=== PATIENT | female | born 1935 | race African-American/Black ===

== ENCOUNTER 2020-08-14 11:38 | Inpatient (IN) | payer MEDICARE, BC ==
[~2020-08-14] VITALS: Ht 165.1 cm; Wt 52.2 kg
[2020-08-14] MEDS ORDERED: ISOSORBIDE DINIT5 MG ORAL (11:43)
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
--- NOTE | 2020-08-14 12:16 | NUR ---
ED Nurse Note: pt aware that we need to obtain a urine sample. relates unable to at this time.
[2020-08-14] MEDS ORDERED: CLOPIDOGREL75 MG ORAL (12:19)
[2020-08-14] MEDS ORDERED: METFORMIN HCL500 M1 ORAL (12:19)
[2020-08-14] MEDS ORDERED: NAMENDA10 MG ORAL (12:19)
[2020-08-14 12:24] VITALS: BP 145/73
[2020-08-14] MEDS ORDERED: Jardiance (12:28)
[2020-08-14 13:09] LABS: BASOPHILS % (AUTO) 1.7 % (0.0-2.0); EOSINOPHILS % (AUTO) 0.9 % (0.0-3.0); HEMATOCRIT 44.2 % (37.0-47.0); HEMOGLOBIN 14.6 G/DL (12.0-16.0); LYMPHOCYTES % (AUTO) 30.6 % (20.0-45.0); MEAN CORPUSCULAR VOLUME 92 FL (80-99); MONOCYTES % (AUTO) 9.5 % (1.0-10.0); NEUTROPHILS % (AUTO) 57.4 % (45.0-75.0); PLATELET COUNT 191 K/UL (150-450); RED BLOOD COUNT 4.81 M/UL (4.20-5.40); RED CELL DISTRIBUTION WIDTH 12.6 % (11.6-14.8); WHITE BLOOD COUNT 4.7 K/UL (4.8-10.8)
--- NOTE | 2020-08-14 13:28 | NUR ---
ED Nurse Note: labs redrawn and sent as prior were hemolyzed. pt amb to [facility] and obtining urine sample.
[2020-08-14 13:36] LABS: APPEARANCE,URINE CLEAR; BILIRUBIN, URINE NEGATIVE (NEGATIVE); COLOR,URINE PALE YELLOW; GLUCOSE, URINE (UA) 4+ (NEGATIVE); KETONES,URINE 3+ (NEGATIVE); LEUKOCYTE ESTERASE ,URINE 2+ (NEGATIVE); NITRITE,URINE NEGATIVE (NEGATIVE); PH,URINE 7 (4.5-8.0); PROTEIN,URINE 1+ (NEGATIVE); UROBILINOGEN,URINE NORMAL MG/DL (0.0-1.0)
[2020-08-14] MEDS ORDERED: cefTRIAXone 1 GM in NS 55 ML IVPB ONE (13:45)
[2020-08-14 14:18] LABS: ANION GAP 11 mmol/L (5-15); BLOOD UREA NITROGEN 23 mg/dL (7-18); CARBON DIOXIDE 24 MMOL/L (21-32); CHLORIDE 105 MMOL/L (98-107); CREATININE 1.1 MG/DL (0.55-1.30); POTASSIUM 4.6 MMOL/L (3.5-5.1); SODIUM 140 MMOL/L (136-145)
[2020-08-14 14:22] LABS: ALANINE AMINOTRANSFERASE 7 U/L (12-78); ALBUMIN 3.8 G/DL (3.4-5.0); ALKALINE PHOSPHATASE 78 U/L (46-116); ASPARTATE AMINO TRANSFERASE 23 U/L (15-37); BILIRUBIN,TOTAL 0.6 MG/DL (0.2-1.0); HDL CHOLESTEROL 69 MG/DL (40-60)
--- NOTE | 2020-08-14 15:33 | NUR ---
EMERGENCY CONTACT: [phone]: Bethany (daughter)
--- NOTE | 2020-08-14 17:16 | NUR ---
ED Nurse Note: pt speaking to dr diaz via [employer]. pt to be attempted to be placed in psych facility for 5150 hold upheld.
[2020-08-14] MEDS ORDERED: LORazepam 1mg tab ORAL ONE (17:45)
--- NOTE | 2020-08-14 17:46 | NUR ---
ED Nurse Note: pt's daughter and granddaughter given updates as to status of pt's care. pt to remain on 5150 hold. belongings are placed in pt locker #3. pt taking po ativan without incident.
--- NOTE | 2020-08-14 18:06 | Emergency Room Report ---
Physical Exam Vital Signs Date Time Temp Pulse Resp B/P (MAP) Pulse Ox O2 Delivery O2 Flow Rate FiO2 08/14/20 11:30 98.8 96 19 148/79 (102) 100 Room Air Medical Decision Making Diagnostic Impression: Primary Impression: Dementia with behavioral disturbance Additional Impression: UTI (urinary tract infection) ER Course Briefly, this an 85-year-old female history of dementia brought in on 5150 hold for danger to self. Labs show questionable UTI and the patient received antibiotics. Other labs are within normal limits. Discussed with our psychiatrist, Dr. Parsons, who is recommending placement for full psych evaluation at this time. Will arrange placement for the patient. 2200: Unable to place patient. She will be admitted for social work consult and psychiatric evaluation. Admitted to panel physician, Dr. Abraham. Laboratory Tests Test 08/14/20 12:00 08/14/20 12:05 08/14/20 13:14 08/14/20 13:20 White Blood Count 4.7 K/UL (4.8-10.8) L Red Blood Count 4.81 M/UL (4.20-5.40) Hemoglobin 14.6 G/DL (12.0-16.0) Hematocrit 44.2 % (37.0-47.0) Mean Corpuscular Volume 92 FL (80-99) Mean Corpuscular Hemoglobin 30.3 PG (27.0-31.0) Mean Corpuscular Hemoglobin Concent 32.9 G/DL (32.0-36.0) Red Cell Distribution Width 12.6 % (11.6-14.8) Platelet Count 191 K/UL (150-450) Mean Platelet Volume 7.0 FL (6.5-10.1) Neutrophils (%) (Auto) 57.4 % (45.0-75.0) Lymphocytes (%) (Auto) 30.6 % (20.0-45.0) Monocytes (%) (Auto) 9.5 % (1.0-10.0) Eosinophils (%) (Auto) 0.9 % (0.0-3.0) Basophils (%) (Auto) 1.7 % (0.0-2.0) POC Whole Blood Glucose 100 MG/DL (74-106) Urine Color Pale yellow Urine Appearance Clear Urine pH 7 (4.5-8.0) Urine Specific [place] 1.010 (1.005-1.035) Urine Protein 1+ (NEGATIVE) H Urine Glucose (UA) 4+ (NEGATIVE) H Urine Ketones 3+ (NEGATIVE) H Urine Blood Negative (NEGATIVE) Urine Nitrite Negative (NEGATIVE) Urine Bilirubin Negative (NEGATIVE) Urine Urobilinogen Normal MG/DL (0.0-1.0) Urine Leukocyte Esterase 2+ (NEGATIVE) H Urine RBC 0-2 /HPF (0 - 2) Urine WBC 5-10 /HPF (0 - 2) H Urine Squamous Epithelial Cells Few /LPF (NONE/OCC) Urine Bacteria Few /HPF (NONE) Urine Opiates Screen Negative (NEGATIVE) Urine Barbiturates Screen Negative (NEGATIVE) Phencyclidine (PCP) Screen Negative (NEGATIVE) Urine Amphetamines Screen Negative (NEGATIVE) Urine Benzodiazepines Screen Negative (NEGATIVE) Urine Cocaine Screen Negative (NEGATIVE) Urine Marijuana (THC) Screen Negative (NEGATIVE) Sodium Level 140 MMOL/L (136-145) Potassium Level 4.6 MMOL/L (3.5-5.1) Chloride Level 105 MMOL/L (98-107) Carbon Dioxide Level 24 MMOL/L (21-32) Anion Gap 11 mmol/L (5-15) Blood Urea Nitrogen 23 mg/dL (7-18) H Creatinine 1.1 MG/DL (0.55-1.30) Estimated Glomerular Filtration Rate 57.3 mL/min (>60) Glucose Level 97 MG/DL (74-106) Calcium Level 9.0 MG/DL (8.5-10.1) Magnesium Level 2.1 MG/DL (1.8-2.4) Total Bilirubin 0.6 MG/DL (0.2-1.0) Aspartate Amino Transferase (AST) 23 U/L (15-37) Alanine Aminotransferase (ALT) 7 U/L (12-78) L Alkaline Phosphatase 78 U/L (46-116) Total Protein 7.6 G/DL (6.4-8.2) Albumin 3.8 G/DL (3.4-5.0) Globulin 3.8 g/dL Albumin/Globulin Ratio 1.0 (1.0-2.7) HDL Cholesterol 69 MG/DL (40-60) H Salicylates Level 0.5 ug/mL (2.8-20) L Acetaminophen Level < 2 MCG/ML (10-30) L Serum Alcohol < 3 mg/dL Last Vital Signs Date Time Temp Pulse Resp B/P (MAP) Pulse Ox O2 Delivery O2 Flow Rate FiO2 08/14/20 17:39 77 20 145/73 99 08/14/20 12:24 Room Air 08/14/20 11:30 98.8 Disposition: ADMITTED INPATIENT Condition: Stable Referrals: NON PHYSICIAN (PCP) Additional Instructions: Please note that this report is being documented using [employer] technology. This can lead to erroneous entry secondary to incorrect interpretation by the dictating instrument. Donavon Farooq MD Aug 14, 2020 18:06
--- NOTE | 2020-08-14 18:47 | NUR ---
ED Nurse Note: pt eating food tray and tolerating without incident. pt appears with decreased agitation after ativan taken po.
--- NOTE | 2020-08-14 19:30 | NUR ---
ED Nurse Note: received patient from chayo enriquez. patient sleeping in bed with no acute distress. vitals stable to baseline. arousable to name. ao2 with episodes of confusion. denies HI or SI at this time. discussed plan of care; patient verbalizes understanding and willingness to continue with care. all safety measures met.
--- NOTE | 2020-08-14 20:00 | NUR ---
ED Nurse Note: patient sleeping in bed with no acute signs of distress. respirations even and unlabored.
[2020-08-14 20:15] VITALS: BP 131/67
--- NOTE | 2020-08-14 22:00 | NUR ---
ED Nurse Note: patient and vitals remains stable to baseline.
--- NOTE | 2020-08-15 | NUR ---
ED Nurse Note: patient sleeping in bed. vitals stable. respirations even and unlabored.
[2020-08-15 00:47] VITALS: BP 128/63
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
--- NOTE | 2020-08-15 03:30 | NUR ---
ED Nurse Note: patient awake alert and orientd x3 with episodes of paranoia. provided toileting. assisted back into bed. vitals stable.
--- NOTE | 2020-08-15 04:30 | NUR ---
ED Nurse Note: covid swab collected; sent down to lab.
[2020-08-15 04:56] VITALS: BP 127/71
[2020-08-15 06:23] VITALS: BP 144/81
--- NOTE | 2020-08-15 06:24 | NUR ---
ED Nurse Note: ambulated to bathroom with steady gait. presents with linear speech and thought pattern. denies HI or SI. assisted back to bed; reattached to monitor. will continue to monitor.
--- NOTE | 2020-08-15 07:10 | NUR ---
HAND-OFF: Report given to garth enriquez. endorsed 5150 hold and pending admission.
--- NOTE | 2020-08-15 07:30 | NUR ---
ED Nurse Note: Pt sitting in bed, calm, talking to self. Pt currently denies SI. Safety precautions in place.
--- NOTE | 2020-08-15 08:10 | NUR ---
ED Nurse Note: Report given to John BARTHOLOMEW MS.
[2020-08-15 08:27] VITALS: BP 142/78
--- NOTE | 2020-08-15 08:35 | NUR ---
ED Nurse Note: Pt transferred to MS floor with all belongings. Pt is alert and ox4, ambulatory. No acute distress. Received by RN.
[2020-08-15 09:21] VITALS: BP 140/76
[2020-08-15] MEDS ORDERED: LORazepam Inj 2mg/ml 1ml IV PRN (10:30)
--- NOTE | 2020-08-15 10:44 | NUR ---
CHARGE NURSE NOTE: Pt is agitated, does not want to stay in her room, wants to leave against medical advice. Pt is walking the the hallway, accompanied by Lacie sitter. Nursing supervisor fabrication and assembly Noemi with the patient. Pt's daughter will pick her up. notified.
--- NOTE | 2020-08-15 10:52 | NUR ---
NURSE NOTES: patient left AMA at 1045 am. patient was picked up by granddaughter, Hollie. patient left with all her belongings including cellphone, molecular technologist, and clothes. patient signed AMA paperwork, she was educated on the risks versus benefits of leaving against medical advice. Patient did not show any signs of respiratory distress, she ambulated without assistance, took her IV out.
--- NOTE | 2020-08-15 12:40 | NUR ---
CASE MANAGEMENT:INITIAL REVIEW 85 YR OLD FEMALE BIBA FROM HOME CC;BEHAVIORAL COMPLAINT SI;ALTERED MENTAL STATUS 98.8 96 19 148/79 99% ON RA WBC 4.7 BUN 23 UA+ PROTEIN, GLUCOSE, KETONES, LEUKOCYTE ESTERASE, WBC COVID RAPID ~ NEGATIVE IS;IVF NS BOLUS ROCEPHIN IV ATIVAN IV ADMITTED TO MED SURG 08/14/20 @ 9194 MED SURG STATUS DCP;FROM HOME PATIENT LEFT AMA ON 08/15/20 @ 5077
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
--- NOTE | 2020-08-16 02:00 | Consultation ---
DATE OF CONSULTATION: 08/15/2020 HISTORY OF PRESENT ILLNESS: The patient is an 85-year-old female who was brought into the emergency room on a 5150. The patient was admitted to the medical floor. During evaluation, the patient was able to understand, process, communicate rationally. She knew the risks versus benefits of leaving against medical advice. She requested to be discharged. Her daughter is going to take care of her. The patient denied any suicidal or homicidal ideation. I recommended for her to remain in the hospital and be transferred to the psychiatric unit. The patient is reluctant at the time of evaluation. She was able to understand the consequences of being discharged AMA. The patient's daughter was adamant about picking up her mother. MENTAL STATUS EXAMINATION: The patient is alert, oriented times self, place, and situation. Mood is irritable. Affect is blunted, congruent with mood. Thought process is concrete. Thought content, no suicidal or homicidal ideation. Memory is impaired. Insight and judgment are limited. ASSESSMENT: The patient has capacity to leave against medical advice; however, I recommended a psychiatric hospitalization to address her dementia and medication readjustment. The patient is not currently an imminent danger to self, and the patient is reluctant to stay in the hospital and would like to be discharged. Sariah Parsons M.D. DR: MICHEL JOB#: [id number] CC:
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
== END 2020-08-15 10:50 | disposition left against medical advice (07) | DRG 690 ==
LOC: EDBD 11:38 → EMR 13:42 → 4E 22:10 → EDBEDREQ 08-15 04:24
DX: N39.0 Urinary tract infection, site not specified (principal); F02.81 Dementia in other diseases classified elsewhere, unspecified severity, with behavioral disturbance; E11.9 Type 2 diabetes mellitus without complications; I10 Essential (primary) hypertension; G30.9 Alzheimer's disease, unspecified; F39 Unspecified mood [affective] disorder
CPT/HCPCS: 36415; 80053; 80307; 81003; 82962; 83718; 83735; 85025; 96365; 99285; G0480; J7030; U0002